=== PATIENT | female | born 1995 | race African-American/Black ===

== ENCOUNTER 2016-11-07 10:35 | Outpatient (CLI) | payer MEDICAID ==
[2016-11-07 11:07] LABS: APPEARANCE,URINE SLIGHTLY-CLOUDY; BILIRUBIN,URINE NEGATIVE (NEGATIVE); GLUCOSE, URINE NEGATIVE (NEGATIVE); KETONES,URINE NEGATIVE (NEGATIVE); LEUKOCYTE ESTERASE,URINE NEGATIVE (NEGATIVE); NITRITE,URINE NEGATIVE (NEGATIVE); PROTEIN,URINE NEGATIVE (NEGATIVE); URINE SPECIFIC GRAVITY 1.006; UROBILINOGEN,URINE NEGATIVE mg/dL (<2.0)
[2016-11-07 11:22] LABS: URINE BARBITURATES SCREEN NEGATIVE; URINE METHADONE SCREEN NEGATIVE; URINE OPIATES LOW NEGATIVE; URINE PHENCYCLIDINE SCREEN NEGATIVE
--- NOTE | 2016-11-07 11:27 | Non Stress Test Report ---
Non Stress Test Datetime Report Generated by CPN: 11/07/2016 11:27 DEMOGRAPHIC EGA NST: 40.5 INDICATION Indication for Study: Other Indication for Study (NST) Other: LC MONITORING Monitor Explained: Monitor Explained; Test Explained; Patient Verbalized Understanding Time on Monitor: 11/07/2016 10:55 Time off Monitor: 11/07/2016 11:22 NST Duration: 27 NST INTERVENTIONS NST Interventions: None BABY A: [id number] BABY A Movement : Present Contraction Frequency : irreg FHR Baseline : 120 Accelerations : 15X15 Decelerations : None Variability : Moderate 6-25bpm NST Review: Meets Criteria for Reactive NST NST Review and Verified By : D Bellavance RNC NST Results: Reactive NST REPORT Report Trigger: Send Report
== END 2016-11-07 11:29 | disposition home or self-care (01) ==
LOC: LC 10:35
PROVIDERS: ATTEND Obstetrics & Gynecology
PROC: 4A1HXCZ Monitoring of Products of Conception, Cardiac Rate, External Approach (ICD-10-PCS; principal; 2016-11-07)
DX: O47.1 False labor at or after 37 completed weeks of gestation (principal); Z3A.40 40 weeks gestation of pregnancy
CPT/HCPCS: 59025; 80307; 81005

== ENCOUNTER 2016-11-07 23:05 | Inpatient (IN) | payer MEDICAID ==
[2016-11-07 23:49] LABS: APPEARANCE,URINE CLEAR; BILIRUBIN,URINE NEGATIVE (NEGATIVE); GLUCOSE, URINE NEGATIVE (NEGATIVE); KETONES,URINE NEGATIVE (NEGATIVE); LEUKOCYTE ESTERASE,URINE NEGATIVE (NEGATIVE); NITRITE,URINE NEGATIVE (NEGATIVE); PROTEIN,URINE NEGATIVE (NEGATIVE); URINE SPECIFIC GRAVITY 1.012; UROBILINOGEN,URINE NEGATIVE mg/dL (<2.0)
[2016-11-07 23:58] LABS: AMNISURE (ROM) POSITIVE (NEGATIVE)
[2016-11-08] MEDS ORDERED: OXYTOCIN/NORMAL SALINE 1,000 ML IV PRN ×2 (00:06→14:06)
[2016-11-08] MEDS ORDERED: DINOPROSTONE 10 MG VAGINAL INSERT.SR PV PRN (00:06)
[2016-11-08] MEDS ORDERED: RINGERS SOLUTION,LACTATED 1,000 ML IV PRN (00:06)
[2016-11-08] MEDS ORDERED: RINGERS SOLUTION,LACTATED 300 ML IV ONE (00:06)
[2016-11-08] MEDS ORDERED: CLINDAMYCIN 900 MG/D5W RTU 50 ML IV ONE ×2 (00:11→08:07)
[2016-11-08] MEDS ORDERED: DINOPROSTONE 10 MG VAGINAL INSERT.SR ONE (00:11)
[2016-11-08 00:15] LABS: URINE BARBITURATES SCREEN NEGATIVE; URINE METHADONE SCREEN NEGATIVE; URINE OPIATES LOW NEGATIVE; URINE PHENCYCLIDINE SCREEN NEGATIVE
[2016-11-08 00:34] LABS: ABSOLUTE EOSINOPHILS # (AUTO) 0.3 10^3/uL (0.0-0.6); ABSOLUTE LYMPHOCYTES (AUTO) 2.4 10^3/uL (0.5-4.7); ABSOLUTE MONOCYTES (AUTO) 0.7 10^3/uL (0.1-1.4); ABSOLUTE NEUT (AUTO) 6.9 10^3/uL (1.7-8.2); BASOPHILS % (AUTO) 0.5 % (0-2); HEMATOCRIT 37.7 % (36.0-47.0); HEMOGLOBIN 12.4 g/dL (12.0-15.5); HGB HCT DIFFERENCE -0.5; LYMPHOCYTES % (AUTO) 22.9 % (13-45); MEAN CORPUSCULAR HEMOGLOBIN 30.7 pg (27.0-33.4); MEAN CORPUSCULAR VOLUME 93 fl (80-97); MONOCYTES % (AUTO) 7.2 % (3-13); RED BLOOD COUNT 4.05 10^6/uL (3.72-5.28); RED CELL DISTRIBUTION WIDTH 14.2 % (11.5-14.0); SEGMENTED NEUTROPHILS % (AUTO) 66.4 % (42-78); WHITE BLOOD COUNT 10.4 10^3/uL (4.0-10.5)
[2016-11-08] MEDS ORDERED: ZOLPIDEM TARTRATE 5 MG TABLET PO ONE (02:52)
[2016-11-08] MEDS ORDERED: ZOLPIDEM TARTRATE 5 MG TABLET ONE (02:57)
[2016-11-08] MEDS ORDERED: OXYTOCIN/NORMAL SALINE 20 UNIT/1,000 ML RTUINJ ONE ×2 (08:07→14:14)
[2016-11-08] MEDS: CLINDAMYCIN 900 MG/D5W RTU 50 ML IV SCH ×2 (08:27→17:05)
--- NOTE | 2016-11-08 10:17 | L&D Progress Notes ---
PROGRESS NOTES Datetime Report Generated by CPN: 11/08/2016 10:16 PROGRESS NOTE Impression: Normal Progression of Labor; Reassuring Heart Rate Procedures: Scalp Electrode Plan: Continue Present Management; Induction Plan Other: may have IV pain medications Vital Signs : Reviewed; Within Normal Limits Comment: Pt uncomfortable with ctx IV pain medication Continue pitocin VAGINAL EXAM Dilatation: 2 Dilatation: 1 Effacement: 80 Effacement: 0 Station: -2 Station: -3 Contractions: 2-4 MEMBRANES Pooling: Negative Membranes: Ruptured Membranes: Ruptured Amniotic Fluid Color: Clear FETUS A FHR - Baseline: 120 Monitoring: External US Variability: Moderate 6-25bpm Accelerations: 15X15 Decelerations: Early : 40.6 Estimated Weight (gm): 4000 Presentation: Vertex SIGNATURE SIGNATURE: [id number];[id number] SIGNATURE: [id number] Assignment: Gwendolyn Benitez MD Signature: with User ID: [email or web address] : with User ID: [email or web address]
[2016-11-08] MEDS ORDERED: NALBUPHINE HCL INJ 10 MG/1 ML AMPULE INJ ONE (10:22)
[2016-11-08] MEDS ORDERED: NALBUPHINE HCL INJ 10 MG/1 ML AMPULE ONE (10:53)
--- NOTE | 2016-11-08 13:52 | L&D Progress Notes ---
PROGRESS NOTES Datetime Report Generated by CPN: 11/08/2016 13:52 PROGRESS NOTE Impression: Non-reassuring Heart Rate Procedures: Sterile Vag Exam Plan: Deliver- Section Plan Other: Dr. Benitez @ bedside Informed Consent Obtained: Section Delivery Vital Signs : Reviewed Comment: Dr. Benitez at bedside discussing plan of care with patient and family Pt agreeable to c/s NRFHT, remote from delivery Staff notified, pt preped for c/s VAGINAL EXAM Dilatation: 3 Effacement: 80 Station: -2 Contractions: 2 min MEMBRANES Membranes: Ruptured Amniotic Fluid Color: Clear FETUS A FHR - Baseline: 100 Monitoring: Internal Scalp Electrode Decelerations: Variable FHR Category: Category II FETUS C SIGNATURE: [id number];[id number] Assignment: Gwendolyn Benitez MD Signature: with User ID: [email or web address] : with User ID: [email or web address]
[2016-11-08] MEDS ORDERED: CEFAZOLIN 2 GM/D5W RTU 2 GM/50 ML RTUPB IV ONE (14:05)
[2016-11-08] MEDS ORDERED: DIPH/PERTUSS(ACELL)/TETANUS VAC/PF 0.5 ML SYR (>=10YO) IM PRN (14:06)
[2016-11-08] MEDS ORDERED: ACETAMINOPHEN 325 MG TABLET PO PRN (14:06)
[2016-11-08] MEDS ORDERED: SIMETHICONE 80 MG TAB.CHEW PO PRN (14:06)
[2016-11-08] MEDS ORDERED: MEASLES,MUMPS&RUBELLA VACC/PF 0.5 ML VIAL SUBCUT PRN (14:06)
[2016-11-08] MEDS ORDERED: HYDROMORPHONE HCL INJ/PF 2 MG/ML AMPULE IV PRN ×2 (14:06→20:04)
[2016-11-08] MEDS ORDERED: PROMETHAZINE HCL INJ 25 MG/1 ML VIAL IV PRN (14:06)
[2016-11-08] MEDS ORDERED: ACETAMINOPHEN 100 ML IV PRN (14:06)
[2016-11-08] MEDS ORDERED: MIDAZOLAM 2 MG/2 ML INJ ONE (14:14)
[2016-11-08] MEDS ORDERED: ONDANSETRON HCL INJ/PF 4 MG/2 ML SDV ONE (14:14)
[2016-11-08] MEDS ORDERED: FENTANYL CITRATE INJ/PF 100 MCG/2 ML AMPUL ONE ×2 (14:14→17:01)
--- NOTE | 2016-11-08 15:15 | Operative Report ---
Operative Report DATE OF SURGERY: 11/08/16 PREOPERATIVE DIAGNOSIS: Nonreassuring heart tracing POSTOPERATIVE DIAGNOSIS: Same OPERATION: Primary via low transverse uterine incision SURGEON: AKIRA RAPHAEL ANESTHESIA: Spinal - T3 was elevated with TISSUE REMOVED OR ALTERED: Placenta COMPLICATIONS: None ESTIMATED BLOOD LOSS: 250 cc INTRAOPERATIVE FINDINGS: Small fibroid in the right cornu of the uterus proximally 3 cm, normal tubes and ovaries PROCEDURE: Patient was taken to the OR and placed in supine position after her spinal anesthesia. She is prepared and draped in sterile fashion. Joseph was placed for drainage of the bladder. Low transverse incision was made and carried down the level of the fascia. The fascial incision was made with knife and extended bilaterally with curved Wiggins scissors. The fascia was off the rectus muscles using sharp and blunt dissection. The rectus muscles are in the midline. The peritoneum was entered without incident. Bladder blade was placed in uterine segment was identified. A low transverse incision was made creating a bladder flap. Bladder blade was placed low transverse uterine incision was made with the csafe knife and extended with fingertips. The baby was delivered with some fundal pressure. Mouth and nose were suctioned free. The cord was doubly clamped and cut. Baby was passed off to the pediatric immunologist in attendance. The placenta was manually extracted with trailing membranes. The uterus was externalized wrapped in a moist lap sponge. Uterine contents wiped free. Uterus was closed with a running locking layer of 0 chromic suture using the second layer to imbricate the first completing a double layer closure of the uterus. The serosa was closed with a running 2-0 chromic stitch. The pelvis was irrigated and suctioned free of fluid the uterus was replaced in the abdomen. The abdominal wall peritoneum was closed with running 2-0 chromic stitch. Fascia was closed with a running 0 Vicryl in 2 segments. Coby's layer was brought together with 0 plain gut stitch and the skin was closed with running subcuticular 4-0 undyed Vicryl stitch. The wound was dressed mother and baby did well.
--- NOTE | 2016-11-08 17:49 | Admission Physical ---
Datetime Report Generated by CPN: 11/08/2016 17:48 CURRENT ADMISSION Chief Complaint: Suspected Ruptured Membranes Indication for Induction: PROM Admit Plan: Admit to Unit; Initiate Labor Induction Protocol ALLERGIES Medication Allergies: Yes Medication Allergies: Penicillins (11/07/2016) Latex: No Latex Allergies Food Allergies: none Environmental Allergies: none OBSTETRICAL HISTORY EDC: 11/02/2016 00:00 : 1 Para: 0 Term: 0 : 0 SAB: 0 IAB: 0 Ectopic: 0 Livin Cesareans: 0 VBACs: 0 Multiple Births: 0 Gestational Diabetes: No Rh Sensitization: No Incompetent Cervix: No SAIDA: No Infertility: No ART Treatment: No Uterine Anomaly: No IUGR: No Hx Previous C/S: No Macrosomia: No Hx Loss/Stillborn: No PIH: No Hx : No Placenta Previa/Abruption: No Depression/PP Depression: No PTL/PROM: No Post Hemorrhage: No Current Procedures: Ultrasound; NST Obstetrical History Comments: G1: current SEE RECORDS Alcohol: No Marijuana : No Cocaine: No Other Illicit Drugs: No Cigarettes: Never Smoker. 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 Heart Disease: No Hosp/Surgery: No Autoimmune Disorder: No Anesthetic Complications: No Kidney Disease: No Abnormal Pap Smear: No Neuro/Epilepsy: No Psychiatric Disorders: No Other Medical Diseases: No Hepatitis/Liver Disease: No Significant Family History: No Varicosities/Phlebitis: No Trauma/Violence : No Thyroid Dysfunction: No INFECTIOUS HISTORY Gonorrhea: No Genital Herpes: No Chlamydia: No Tuberculosis: No Syphilis: No Hepatitis: No HIV/AIDS Exposure: No Rash or Viral Illness: No HPV: No PHYSICAL EXAM General: Normal HEENT: Normal Neurologic: Normal Thyroid: Normal Heart: Normal Lungs: Normal Breast: Normal Back: Normal Abdomen: Normal Genitourinary Exam: Normal Extremities: Normal DTRs: Normal Pelvic Type: Adequate Vital Signs: Reviewed VAGINAL EXAM Dilatation: 3 Dilatation: 2 Dilatation: 1 Effacement: 80 Effacement: 80 Effacement: 0 Station: -2 Station: -2 Station: -3 Contraction Comments: 2 min Contraction Comments: 2-4 MEMBRANES Pooling: Negative Membranes: Ruptured Membranes: Ruptured Membranes: Ruptured Amniotic Fluid Color: Clear Amniotic Fluid Color: Clear FETUS A EGA: 40.6 Monitoring: External US FHR- Baseline: 120 Variability: Moderate 6-25bpm Accelerations: 15X15 Decelerations: None FHR Category: Category I FHR Comments: amnisure positive Estimated Weight (gm): 4000 Presentation: Vertex Admit Comment: switch to pitocin PLANS FOR LABOR AND DELIVERY Labor and Delivery: None Feeding Preference: Breast Benefit of Breast Feed Discussed: Yes Circumcision: Yes INFORMED CONSENT Informed Consent Obtained: Section Delivery Signature: with User ID: [email or web address]
[2016-11-08] MEDS: DOCUSATE SODIUM 100 MG CAPSULE PO SCH (18:38)
[2016-11-08] MEDS: IBUPROFEN 800 MG TABLET PO SCH ×2 (18:38→23:55)
[2016-11-08] MEDS: OXYCODONE-ACETAMINOPHEN 5-325 MG TABLET PO PRN (18:39)
[2016-11-09] MEDS: OXYCODONE-ACETAMINOPHEN 5-325 MG TABLET PO PRN ×3 (02:04→21:00)
[2016-11-09] MEDS: IBUPROFEN 800 MG TABLET PO SCH ×4 (05:35→23:14)
[2016-11-09 07:05] LABS: HEMATOCRIT 31.6 % (36.0-47.0); HEMOGLOBIN 10.4 g/dL (12.0-15.5); HGB HCT DIFFERENCE -0.4; MEAN CORPUSCULAR HEMOGLOBIN 30.6 pg (27.0-33.4); MEAN CORPUSCULAR VOLUME 93 fl (80-97); RED BLOOD COUNT 3.41 10^6/uL (3.72-5.28); RED CELL DISTRIBUTION WIDTH 14.3 % (11.5-14.0); WHITE BLOOD COUNT 13.3 10^3/uL (4.0-10.5)
--- NOTE | 2016-11-09 09:50 | PDOC PROGRESS REPORT ---
Subjective-OB Subjective: Post Delivery Day: 21 year old. Denies any needs at this time Doing well, OOB to BR, voiding, eating well, family at BS, not passing gas, breast feeding Physical Exam (OB) Vital Signs: Temp Pulse Resp BP Pulse Ox 98.0 F 76 14 120/78 100 11/09/16 08:20 11/09/16 08:20 11/09/16 08:20 11/09/16 08:20 11/09/16 08:20 Intake & Output 11/08/16 11/09/16 11/10/16 06:59 06:59 06:59 Intake Total 2024 Output Total 2699 Balance -675 Weight 82.15 kg - Dressing Removed: No Incision: Dressing - Lochia Lochia Amount: Scant < 10 ml Lochia Color: Rubra/Red - Abdomen Description: Tender, Soft Hernia Present: No Fundal Description: Firm, Midline Fundal Height: u/u - u/2 Objective-Diagnostic Laboratory: 11/09/16 06:40 11/09/16 06:40 WBC 13.3 H RBC 3.41 L Hgb 10.4 L Hct 31.6 L MCV 93 MCH 30.6 MCHC 33.0 RDW 14.3 H Plt Count 153 11/08/16 00:19 Nasophary (Mrsa Only) MRSA Culture - Final NO MRSA RECOVERED Assessment and Plan(PN) - Assessment and Plan (1) GBS (group B Streptococcus carrier), +RV culture, currently Is this a current diagnosis for this admission?: Yes (2) Delivery by section of full-term infant Is this a current diagnosis for this admission?: Yes - Time Spent with Patient Time with patient: Less than 15 minutes Medications reviewed and adjusted accordingly: Yes - Disposition Anticipated Discharge: Home Within: within 24 hours
[2016-11-09] MEDS: PRENATAL VITAMIN W-O CA NO5/FE FUMARATE/FA CAPSULE PO SCH (10:27)
[2016-11-09] MEDS: DOCUSATE SODIUM 100 MG CAPSULE PO SCH ×2 (10:28→18:05)
[2016-11-10] MEDS: IBUPROFEN 800 MG TABLET PO SCH ×2 (06:30→11:14)
[2016-11-10 09:12] VITALS: BP 112/66
[2016-11-10] MEDS: PRENATAL VITAMIN W-O CA NO5/FE FUMARATE/FA CAPSULE PO SCH (09:23)
[2016-11-10] MEDS: DOCUSATE SODIUM 100 MG CAPSULE PO SCH (09:23)
[2016-11-10] MEDS: OXYCODONE-ACETAMINOPHEN 5-325 MG TABLET PO PRN (09:27)
--- NOTE | 2016-11-10 13:53 | PDOC DISCHARGE SUMMARY ---
Final Diagnosis Discharge Date: 11/10/16 - Final Diagnosis (1) Anemia Is this a current diagnosis for this admission?: Yes (2) Status post primary low transverse section Is this a current diagnosis for this admission?: Yes (3) GBS (group B Streptococcus carrier), +RV culture, currently Is this a current diagnosis for this admission?: Yes (4) Delivery by section of full-term Is this a current diagnosis for this admission?: Yes Discharge Data - Discharge Medication Home Medications: Vit/Iron Fumarate/FA [ Tablet] 1 each PO DAILY 11/07/16 Docusate Sodium [Colace 100 mg Capsule] 100 mg PO BID #60 capsule 11/10/16 Ferrous Sulfate [Feosol 325 mg Tablet] 325 mg PO BID #60 tablet 11/10/16 Ibuprofen [Motrin 800 mg Tablet] 800 mg PO Q8HP PRN #90 tablet 11/10/16 Oxycodone HCl/Acetaminophen [Percocet 5-325 mg Tablet] 1 tab PO Q4HP PRN #30 tablet 11/10/16 Reason(s) for Admission: Onset of Labor, PROM Procedures: Ultrasound Intrapartum Procedure(s): : Low Cervical, Transverse - Diagnosis Test Laboratory: Temp Pulse Resp BP Pulse Ox 98.3 F 82 18 112/66 99 11/10/16 11:34 11/10/16 11:34 11/10/16 11:34 11/10/16 08:32 11/10/16 11:34 11/07/16 11/08/16 11/09/16 23:18 00:19 06:40 RBC 4.05 3.41 L Hgb 12.4 10.4 L Hct 37.7 31.6 L Urine Opiates Screen NEGATIVE - Discharge information/Instructions Discharge Activity: Activity As Tolerated, Balance Activity w/Rest, No Driving, No Lifting Over 10 Pounds, No Lifting/Push/Pulling, Pelvic Rest, Slowly Increase Activity, No tub bath, Walk Frequently Discharge Diet: As Tolerated, Regular Disposition: HOME, SELF-CARE Follow up with: [facility] in: 1, Weeks - incision check
--- NOTE | 2016-11-21 13:49 | Delivery Summary ---
Del Sum A-C Datetime Report Generated by CPN: 11/21/2016 13:48 DELIVERY PERSONNEL DELIVERY PERSONNEL: [id number];[id number];[id number];[id number] Delivery Doctor:: Gwendolyn Benitez MD Anesthesiologist:: Juliet Gallagher MD DISPATCHER BUS AND TROLLEY:: Paramjit Olivas CRNA Labor and Delivery Nurse:: Jasmine Reed RNtherapeutic case manager Nurse:: Ely Long RN Neonatal Nurse Practitioner:: FLORENCE Ferro Nursery Nurse:: Nel De Anda RN Home Support Worker/LOCAL SALES ASSOCIATE: [facility] Home Support Worker/LOCAL SALES ASSOCIATE: [facility] MATERNAL INFORMATION Delivery Anesthesia: Spinal Maternal Complications: Premature Rupture of Membranes LABOR SUMMARY EDC: 11/02/2016 00:00 No. Babies in Womb: 1 Attempted: No LABOR INFORMATION Reason for Induction: Not Applicable Cervical Ripening Agents: Cervidil Group B Beta Strep: Positive Name of Antibiotic Given: Clindamycin Steroids Given: None Reason Steroids Not Administered: Not Applicable STAGES OF LABOR Stage 3 hr: 0 Stage 3 min: 1 VAGINAL DELIVERY Episiotomy: None Laceration Extension: N/A Laceration Type: None Sponge Count Correct: N/A CSECTION DELIVERY Primary Indication: Nonreassuring Status CSection Urgency: Non-Scheduled CSection Incidence: Primary Labor: Labor Elective: Elective CSection Incision: Lower Uterine Transverse BABY A INFORMATION Delivery Date/Time: 11/08/2016 14:37 Method of Delivery: Born in Route : No : N/A Forceps: N/A Vacuum Extraction: N/A Shoulder Dystocia : No PRESENTATION/POSITION BABY A Presentation: Cephalic Breech Presentation: N/A PLACENTA INFORMATION BABY A Placenta Delivery Time : 11/08/2016 14:38 (Annotations: Data stored by [facility] on behalf of user) Placenta Method of Delivery: Spontaneous Placenta Status: Delivered SCORES BABY A Heart Rate 1 min: >100 bpm Resp Effort 1 min: Good Cry Reflex Irritability 1 min: Cough or Sneeze or Pulls Away Muscle Tone 1 min: Active Motion Color 1 min: Blue/Pale SCORE 1 MIN: 8 Heart Rate 5 min: >100 bpm Resp Effort 5 min: Good Cry Reflex Irritability 5 min: Cough or Sneeze or Pulls Away Muscle Tone 5 min: Active Motion Color 5 min: Body [place], Extremities Blue SCORE 5 MIN: 9 INFORMATION BABY A Gestational Age at Delivery: 40.6 Gestational Status: Full Term- 39- 40.6 Weeks Outcome : Liveborn Infant Condition : Stable Sex: Male IDENTIFICATION BABY A ID Band Number: [id number] Mother's Name Verified: Yes Infant RN Verifying : Jose Alejandro Long ALTAGRACIAC/Diana Merinojory RN WEIGHT/LENGTH BABY A Infant Birthweight (gm): 3220 Weight (lb): 7 Infant Weight (oz): 2 Length (in): 21.00 Infant Length (cm): 53.34 CORD INFORMATION BABY A No. Cord Vessels: 3 Nuchal Cord : N/A Cord Blood Taken: Yes-For Storage (Mom's Blood type +) Suction: Mouth; Nose ASSESSMENT BABY A Physical Findings at Delivery: Caput Succedaneum; Molding of the Head Respirations: Appears Normal Skin to Skin: Yes Skin to Skin Time (min): 5 Financial Analyst Intern/ALS Called : Yes Care By: Irwin De Anda RN Transferred To: Nursery BABY B INFORMATION : N/A
--- NOTE | 2016-12-30 16:49 | DISCHARGE SUMMARY E ---
Discharge Summary NAME: PATRICE CORLEY : 1995 AGE: 21Y ADMITTED: 11/08/2016 DISCHARGED: 11/10/2016 ADDENDUM: Addendum in response to a medical records query, asking about the reason for the anemia and the reason for the anemia would be acute blood loss with vaginal delivery. DICTATING PHYSICIAN: AKIRA RAPHAEL M.D. [id number] PHY#: [id number] ID: [id number] JOB#: [id number] ACCT: [id number] cc:AKIRA RAPHAEL M.D. >
== END 2016-11-10 14:40 | disposition home or self-care (01) | DRG 765 ==
LOC: LC 23:05 → LR 11-08 00:09 → 2S 11-08 17:47
PROVIDERS: ADMIT Obstetrics & Gynecology; ATTEND Obstetrics & Gynecology
PROC: 10D00Z1 Extraction of Products of Conception, Low, Open Approach (ICD-10-PCS; principal; 2016-11-08)
PROC: 4A1HXCZ Monitoring of Products of Conception, Cardiac Rate, External Approach (ICD-10-PCS; 2016-11-08)
DX: O76 Abnormality in fetal heart rate and rhythm complicating labor and delivery (principal); D62 Acute posthemorrhagic anemia; O42.12 Full-term premature rupture of membranes, onset of labor more than 24 hours following rupture; O99.824 Streptococcus B carrier state complicating childbirth; O99.02 Anemia complicating childbirth; O34.13 Maternal care for benign tumor of corpus uteri, third trimester; D25.9 Leiomyoma of uterus, unspecified; Z88.0 Allergy status to penicillin; Z37.0 Single live birth
CPT/HCPCS: 1961; 36415; 80307; 81005; 84112; 85025; 85027; 86592; 86850; 86900; 86901; 87070; 94799; J0690; J1170; J2250; J2300; J2405; J2590; J3010; J3490